=== PATIENT | female | born 1960 | race Caucasian/White ===

== ENCOUNTER 2017-11-01 11:40 | Emergency (ER) | payer BC ==
[~2017-11-01] VITALS: Ht 152.4 cm; Wt 113.3 kg
[~2017-11-01 11:40] MED LIST: ASPCH81X PO; EMPA1TAB3 PO; INSDGI SC; LIRA18IN SC; PRLSR20 PO; REPA2TAB12 PO; SERT-234 PO
[2017-11-01 11:46] VITALS: TEMP 37.5; O2SAT 96; Ht 152.4 cm; Wt 113.3 kg
[2017-11-01 12:16] LABS: BASO % 0.3 %; BASO ABS # 0.03 K/uL (0-0.2); EOS % 2.1 %; EOS ABS # 0.19 K/uL (0-0.5); HEMATOCRIT 43.2 % (37-47); HEMOGLOBIN 14.4 g/dL (12.0-16.0); IG# 0.04 K/uL (0.00-0.02); LYMPH % 26.5 %; LYMPH ABS # 2.42 K/uL (1.2-3.4); MEAN CELL VOLUME 82.8 fL (80-100); MEAN CORPUSCULAR HEMOGLOBIN 27.6 pg (25-34); MEAN CORPUSCULAR HGB CONC 33.3 g/dl (32-36); MEAN PLATELET VOLUME 10.1 fL (7.4-10.4); MONO % 5.9 %; MONO ABS # 0.54 K/uL (0.11-0.59); NEUT % 64.8 %; NEUT ABS # 5.91 K/uL (1.4-6.5); PLATELET COUNT 253 K/uL (130-400); RED CELL DISTRIBUTION WIDTH CV 14.6 % (11.5-14.5); RED CELL DISTRIBUTION WIDTH SD 43.9 fL (36.4-46.3); WHITE BLOOD COUNT 9.13 K/uL (4.8-10.8)
[2017-11-01 12:21] LABS: INR 0.9 (0.9-1.1); PTT PATIENT 24.6 SECONDS (21.0-31.0)
[2017-11-01 12:27] LABS: ALBUMIN 3.9 gm/dl (3.4-5.0); ALT/SGPT 36 U/L (12-78); AST/SGOT 15 U/L (15-37); BLOOD UREA NITROGEN 18 mg/dl (7-18); CALCIUM 9.3 mg/dl (8.5-10.1); CARBON DIOXIDE 25 mmol/L (21-32); GLUCOSE 150 mg/dl (70-99); LIPASE 79 U/L (73-393); SODIUM 138 mmol/L (136-145)
[2017-11-01 12:33] LABS: ALKALINE PHOSPHATASE 87 U/L (45-117); CKMB 1.2 ng/ml (0.5-3.6); TOTAL PROTEIN 7.5 gm/dl (6.4-8.2)
--- NOTE | 2017-11-01 12:39 | DIAGNOSTIC IMAGING REPORT ---
SINGLE VIEW CHEST CLINICAL HISTORY: Fever. Sepsis. FINDINGS: An AP, portable, upright chest radiograph is obtained. No prior studies are available for comparison at the time of dictation. The cardiomediastinal silhouette is unremarkable. The lungs and pleural spaces are clear. No pneumothorax is seen. The bony thorax is grossly intact. IMPRESSION: No active disease in the chest. Electronically signed by: Yaw Cheek M.D. 11/01/2017 12:37 PM Dictated Date/Time: 11/01/2017 12:37 PM
[2017-11-01] MEDS ORDERED: BENZ100C7 PO (12:47)
[2017-11-01] MEDS ORDERED: INSDGIPEN SC (12:47)
[2017-11-01] MEDS ORDERED: EMPA1TAB3 PO (12:47)
[2017-11-01] MEDS ORDERED: LIRA18IN SQ (12:47)
[2017-11-01] MEDS ORDERED: PRLSR20 PO (12:47)
[2017-11-01] MEDS ORDERED: REPA2TAB12 PO (12:47)
--- NOTE | 2017-11-01 13:04 | EMERGENCY ROOM VISIT NOTE ---
History Report prepared by Ashley: Quin West Under the Supervision of: Dr. Jhonny Borrego D.O. First contact with patient: 12:03 Chief Complaint: CHEST PAIN Stated Complaint: SHARP PAIN BETWEEN SHOULDERS THROUGH CHEST Nursing Triage Summary: patient presents ambulatory to room a09b, sent to ed by PCP with chest pain States chest pain began yesterday reports that pain is intermittent and sharp at time but does resolve completely denies shortness of breath or nausea History of Present Illness The patient is a 57 year old female who presents to the Emergency Room with complaints of waxing and waning back pain which radiates forward to her chest beginning yesterday. The patient reports she was sitting in the car as a passenger when her pain began. She describes her pain as sharp. She denies any worsening or modifying factors. She denies any recent illness, fevers, pain/ swelling to her legs, or shortness of breath. The patient called her PCP who referred her to come to the ED. The patient has a history of diabetes. Source of History: patient Onset: yesterday Position: chest, back Quality: sharp Timing: waxes/wanes Associated Symptoms: + chest pain, + back pain, No fevers, No SOB Review of Systems See HPI for pertinent positives & negatives. A total of 10 systems reviewed and were otherwise negative. Past Medical & Surgical Medical Problems: (1) Diabetes Family History Patient reports no known family medical history. Social History Smoking Status: Former Smoker Marital Status: Housing Status: lives with significant other Occupation Status: employed Current/Historical Medications Scheduled Aspirin (Aspirin Chewable), 81 MG PO QPM Empagliflozin (Jardiance), 25 MG PO DAILY Insulin Glargine (Lantus Solostar), 25 UNITS SC DAILY Liraglutide (Victoza), 1.8 MG SQ DAILY Omeprazole (Prilosec), 20 MG PO DAILY Repaglinide (Prandin), 2 MG PO QDD Sertraline (Zoloft), 100 MG PO QAM Scheduled PRN Benzonatate (Benzonatate), 100 MG PO TID PRN for Cough Allergies Coded Allergies: Sulfa Antibiotics (Verified Allergy, Severe, "SULFA DRUGS": HIVES, SOB, ) Physical Exam Vital Signs Date Time Temp Pulse Resp B/P (MAP) Pulse Ox O2 Delivery O2 Flow Rate FiO2 11/01/17 13:24 87 16 114/83 96 11/01/17 12:23 96 11/01/17 11:46 96 Room Air 11/01/17 11:46 37.5 94 24 154/98 97 Room Air 11/01/17 11:46 97 Room Air Physical Exam CONSTITUTIONAL/VITAL SIGNS: Reviewed / noted above. GENERAL: Non-toxic in appearance. INTEGUMENTARY: Warm, dry, and [place]. HEAD: Normocephalic. EYES: without scleral icterus or trauma. ENT/OROPHARYNX: clear and moist. LYMPHADENOPATHY/NECK: Is supple without lymphadenopathy or meningismus. RESPIRATORY: Lungs clear and equal. CARDIOVASCULAR: Regular rate and rhythm. GI/ABDOMEN: Soft and nontender. No organomegaly or pulsatile mass. No rebound or guarding. Normal bowel sounds. EXTREMITIES: Warm and well perfused. BACK: No CVA tenderness. NEUROLOGICAL: Intact without focal deficits. PSYCHIATRIC: normal affect. MUSCULOSKELETAL: Normally developed with good muscle tone. Medical Decision & Procedures ER Provider Diagnostic Interpretation: Radiology results as stated below per my review and radiologist interpretation: SINGLE VIEW CHEST FINDINGS: An AP, portable, upright chest radiograph is obtained. No prior studies are available for comparison at the time of dictation. The cardiomediastinal silhouette is unremarkable. The lungs and pleural spaces are clear. No pneumothorax is seen. The bony thorax is grossly intact. IMPRESSION: No active disease in the chest. Electronically signed by: Yaw Cheek M.D. Laboratory Results 11/01/17 11:55 Red Blood Count 5.22, Mean Corpuscular Volume 82.8, Mean Corpuscular Hemoglobin 27.6, Mean Corpuscular Hemoglobin Concent 33.3, Mean Platelet Volume 10.1, Neutrophils (%) (Auto) 64.8, Lymphocytes (%) (Auto) 26.5, Monocytes (%) (Auto) 5.9, Eosinophils (%) (Auto) 2.1, Basophils (%) (Auto) 0.3, Neutrophils # (Auto) 5.91, Lymphocytes # (Auto) 2.42, Monocytes # (Auto) 0.54, Eosinophils # (Auto) 0.19, Basophils # (Auto) 0.03 11/01/17 11:55 Test 11/01/17 11:55 White Blood Count 9.13 K/uL (4.8-10.8) Red Blood Count 5.22 M/uL (4.2-5.4) Hemoglobin 14.4 g/dL (12.0-16.0) Hematocrit 43.2 % (37-47) Mean Corpuscular Volume 82.8 fL (80-100) Mean Corpuscular Hemoglobin 27.6 pg (25-34) Mean Corpuscular Hemoglobin Concent 33.3 g/dl (32-36) Platelet Count 253 K/uL (130-400) Mean Platelet Volume 10.1 fL (7.4-10.4) Neutrophils (%) (Auto) 64.8 % Lymphocytes (%) (Auto) 26.5 % Monocytes (%) (Auto) 5.9 % Eosinophils (%) (Auto) 2.1 % Basophils (%) (Auto) 0.3 % Neutrophils # (Auto) 5.91 K/uL (1.4-6.5) Lymphocytes # (Auto) 2.42 K/uL (1.2-3.4) Monocytes # (Auto) 0.54 K/uL (0.11-0.59) Eosinophils # (Auto) 0.19 K/uL (0-0.5) Basophils # (Auto) 0.03 K/uL (0-0.2) RDW Standard Deviation 43.9 fL (36.4-46.3) RDW Coefficient of Variation 14.6 % (11.5-14.5) Immature Granulocyte % (Auto) 0.4 % Immature Granulocyte # (Auto) 0.04 K/uL (0.00-0.02) Prothrombin Time 9.9 SECONDS (9.0-12.0) Prothromb Time International Ratio 0.9 (0.9-1.1) Activated Partial Thromboplast Time 24.6 SECONDS (21.0-31.0) Partial Thromboplastin Ratio 0.9 Anion Gap 6.0 mmol/L (3-11) Est Creatinine Clear Calc Drug Dose 120.0 ml/min Estimated GFR () 118.1 Estimated GFR (Non- 101.9 BUN/Creatinine Ratio 30.4 (10-20) Calcium Level 9.3 mg/dl (8.5-10.1) Total Bilirubin 0.6 mg/dl (0.2-1) Direct Bilirubin 0.2 mg/dl (0-0.2) Aspartate Amino Transf (AST/SGOT) 15 U/L (15-37) Alanine Aminotransferase (ALT/SGPT) 36 U/L (12-78) Alkaline Phosphatase 87 U/L (45-117) Total Creatine Kinase 49 U/L (26-192) Creatine Kinase MB 1.2 ng/ml (0.5-3.6) Creatine Kinase MB Ratio 2.4 (0-3.0) Troponin I < 0.015 ng/ml (0-0.045) Total Protein 7.5 gm/dl (6.4-8.2) Albumin 3.9 gm/dl (3.4-5.0) Lipase 79 U/L (73-393) Laboratory results as stated above per my review. ECG Per My Interpretation Indication: chest pain Rate (beats per minute): 76 Rhythm: normal sinus Findings: no ectopy, other (no ST elevation) ED Course 1209: Previous medical records were reviewed. The patient was evaluated in room A9B. A complete history and physical examination was performed. 1319: On reevaluation, the patient is resting comfortably. I discussed the results and findings with the patient. She verbalized agreement of the treatment plan. She was discharged home. Medical Decision the differential was considered includes acute myocardial infarction, acute coronary syndrome, myocarditis, pericarditis, pericardial effusions /tamponad, esophageal perforation, thoracic aortic dissection, pulmonary embolism, pneumonia, pneumothorax, pancreatitis, shingles, acute cholecystitis, perforated abdominal viscus. This is a 57-year-old female who presents to the ED with a chief complaint of upper back pain that radiates into her chest. The patient states that she was sitting in a car when the symptoms first occurred. She describes a sharp pain that comes and goes. She denies any shortness of breath, nausea, vomiting, diaphoresis, recent illness, fevers or chills. She states that her symptoms do not worsen with exertion. Her vital signs are normal. Her physical exam was also normal. A 12-lead EKG shows a normal sinus rhythm at a rate of 76. CBC and complete metabolic panel were normal. Troponin is negative. The patient was told the results of the test. She was felt to be stable for discharge and outpatient follow-up. Medication Reconcilliation Current Medication List: was personally reviewed by me Blood Pressure Screening Patient's blood pressure: Normal blood pressure Impression Primary Impression: Upper back pain Scribe Attestation The scribe's documentation has been prepared under my direction and personally reviewed by me in its entirety. I confirm that the note above accurately reflects all work, treatment, procedures, and medical decision making performed by me. Departure Information Dispostion Home / Self-Care Referrals Tobias Alonso M.D. (PCP) Forms Call Back Authorization, HOME CARE DOCUMENTATION FORM, IMPORTANT VISIT INFORMATION Patient Instructions My [facility] Additional Instructions Follow-up with your doctor for further care and evaluation in 1-2 days. Return to the emergency department for worsening or new symptoms or any concerns. You have been examined and treated today on an emergency basis only. This is not a substitute for, or an effort to provide, complete comprehensive medical care. It is impossible to recognize and treat all injuries or illnesses in a single emergency department visit. It is therefore important that you follow up closely with your doctor. Call as soon as possible for an appointment.
[2017-11-01 13:24] VITALS: BP 114/83; PULSE 87; O2SAT 96
== END 2017-11-01 13:25 | disposition home or self-care (01) ==
LOC: C.EDB 11:41 → C.EDA 13:25
DX: M54.6 Pain in thoracic spine (principal); E11.9 Type 2 diabetes mellitus without complications; Z79.82 Long term (current) use of aspirin; Z79.4 Long term (current) use of insulin; Z79.899 Other long term (current) drug therapy; Z88.2 Allergy status to sulfonamides; Z87.891 Personal history of nicotine dependence